=== PATIENT | female | born 1990 | race Caucasian/White ===

== ENCOUNTER 2017-10-30 17:01 | Emergency (ER) | payer OTHER ==
[2017-10-30 17:18] VITALS: BP 130/80
--- NOTE | 2017-10-30 17:33 | ED ---
GI/ HPI - HPI Summary HPI Summary: 26 yr old female with the complaint of dysuria, frequency of urination. Denies back pain, fever. She states she feels like she has a UTI. She is not sexually active. LMP 3 weeks ago. - History of Current Complaint Chief Complaint: UCGU Time Seen by Provider: 10/30/17 17:25 Stated Complaint: URINARY Hx Last Menstrual Period: 10/08/17 Pain Intensity: 5 - Allergy/Home Medications Allergies/Adverse Reactions: Allergies Allergy/AdvReac Type Severity Reaction Status Date / Time No Known Allergies Allergy Verified 10/30/17 17:14 PMH/Surg Hx/FS Hx/Imm Hx Endocrine/Hematology History: Reports: Hx Diabetes - TYPE I Cardiovascular History: Reports: Hx Hypertension Infectious Disease History: No Infectious Disease History: Denies: Traveled Outside the [place] in Last 30 Days - Social History Alcohol Use: None Substance Use Type: Reports: None Smoking Status (MU): Never Smoked Tobacco Review of Systems Constitutional: Negative Positive: dysuria, frequency All Other Systems Reviewed And Are Negative: Yes Physical Exam Triage Information Reviewed: Yes Vital Signs On Initial Exam: Initial Vitals Temp Pulse Resp BP Pulse Ox 98.7 F 93 18 130/80 100 10/30/17 17:11 10/30/17 17:11 10/30/17 17:11 10/30/17 17:11 10/30/17 17:11 Vital Signs Reviewed: Yes Appearance: Positive: Well-Appearing, No Pain Distress Skin: Positive: Warm, Skin Color Reflects Adequate Perfusion Head/Face: Positive: Normal Head/Face Inspection Eyes: Positive: EOMI Neck: Positive: Nontender Respiratory/Lung Sounds: Positive: Clear to Auscultation, Breath Sounds Present Cardiovascular: Positive: RRR. Negative: Murmur Abdomen Description: Negative: CVA Tenderness (R), CVA Tenderness (L) Musculoskeletal: Positive: Strength/ROM Intact Neurological: Positive: Sensory/Motor Intact, Alert, Oriented to Person Place, Time, CN Intact II-III Psychiatric: Positive: Affect/Mood Appropriate - Anita Coma Scale Best Eye Response: 4 - Spontaneous Best Motor Response: 6 - Obeys Commands Best Verbal Response: 5 - Oriented Coma Scale Total: 15 Diagnostics - Vital Signs Vital Signs Temp Pulse Resp BP Pulse Ox 10/30/17 17:11 98.7 F 93 18 130/80 100 - Laboratory Lab Results: Lab Results 10/30/17 Range/Units 17:25 POC Urine Color Yellow POC Urine Clarity Clear POC Urine pH 6.0 (5-9) POC Ur Specif [place] <= 1.005 L (1.010-1.030) POC Urine Protein Negative (Negative) POC Ur Glucose (UA) 2+ A (Negative) POC Urine Ketones Negative (Negative) POC Urine Blood 1+ A (Negative) POC Urine Nitrite Negative (Negative) POC Urine Bilirubin Negative (Negative) POC Urine Urobilinogen 0.2 (Negative) POC U Leukocyte Esteras 1+ A (Negative) Lab Statement: Any lab studies that have been ordered have been reviewed, and results considered in the medical decision making process. GIGU Course/Dx - Course Course Of Treatment: 26 yr old female with dysuria, UTI symptoms. Rx with Keflex. - Diagnoses Provider Diagnoses: UTI (urinary tract infection) Discharge - Sign-Out/Discharge Documenting (check all that apply): Discharge/Admit/Transfer - Discharge Plan Condition: Good Disposition: HOME Prescriptions: Cephalexin CAP* [Keflex CAP*] 500 mg PO TID #15 cap Patient Education Materials: Urinary Tract Infection in Women (DC) Referrals: IVAN Correa [Primary Care Provider] - 2 Days - Billing Disposition and Condition Condition: GOOD Disposition: HOME
== END 2017-10-30 17:42 | disposition home or self-care (01) ==
LOC: UCCORT 17:01
DX: N39.0 Urinary tract infection, site not specified (principal)
CPT/HCPCS: 81003; 87086; 99212; G0463

== ENCOUNTER 2018-11-11 18:00 | Emergency (ER) | payer OTHER ==
[2018-11-11 18:40] VITALS: BP 136/71
--- NOTE | 2018-11-11 19:28 | UC ---
Lower Extremity/Ankle HPI - HPI Summary HPI Summary: 28 year old female presents with complaints of pain and swelling to her left ankle after injury. States occurred last night when she slipped descending stairs. She is unsure of the exact mechanism of injury. Notes bruising and abrasion to her left lower leg as well. She was able to walk and bear weight on the leg immediately after the injury as well as in the clinic. Denies numbness or tingling. - History of Current Complaint Chief Complaint: UCLowerExtremity Stated Complaint: SP FALL-LT ANKLE INJURY Time Seen by Provider: 11/11/18 19:10 Hx Obtained From: Patient Hx Last Menstrual Period: 10/16/18 Pain Intensity: 6 - Allergies/Home Medications Allergies/Adverse Reactions: Allergies Allergy/AdvReac Type Severity Reaction Status Date / Time No Known Allergies Allergy Verified 11/11/18 18:40 PMH/Surg Hx/FS Hx/Imm Hx Endocrine History: Diabetes Cardiovascular History: Hypertension - Surgical History Surgical History: None - Family History Known Family History: Positive: Non-Contributory - Social History Occupation: Employed Full-time Lives: With Family Alcohol Use: None Substance Use Type: None Smoking Status (MU): Never Smoked Tobacco Household Exposure Type: Cigarettes - Immunization History Vaccination Up to Date: Yes Review of Systems All Other Systems Reviewed And Are Negative: Yes Constitutional: Positive: Negative Skin: Positive: Bruising, Other - Abrasion Respiratory: Positive: Negative Cardiovascular: Positive: Negative Gastrointestinal: Positive: Negative Genitourinary: Positive: Negative Motor: Negative: Weakness Neurovascular: Negative: Decreased Sensation Musculoskeletal: Positive: Other: - See HPI Neurological: Positive: Negative Is Patient Immunocompromised?: No Physical Exam - Summary Physical Exam Summary: GENERAL APPEARANCE: Well developed, well nourished, alert and cooperative, and appears to be in no acute distress. CARDIAC: Normal S1 and S2. No S3, S4 or murmurs. Rhythm is regular. There is no peripheral edema, cyanosis or pallor. Extremities are warm and well perfused. Capillary refill is less than 2 seconds. Peripheral pulses intact. LUNGS: Clear to auscultation without rales, rhonchi, wheezing or diminished breath sounds. ABDOMEN: Positive bowel sounds. Soft, nondistended, nontender. No guarding or rebound. No masses or hepatosplenomegally. MUSKULOSKELETAL: Normal muscular development. Normal gait. EXTREMITIES: Mild tenderness over the left lateral malleolus without ecchymosis , erythema, edema, or gross deformity. Superficial abrasion to the left anterior lower leg. Area of ecchymosis to the lateral aspect of the left lower leg. Circulation and sensation intact. SKIN: Skin normal color, texture and turgor with no lesions or eruptions. Triage Information Reviewed: Yes Vital Signs: Initial Vital Signs Temp 98.7 F 11/11/18 18:37 Pulse 89 11/11/18 18:37 Resp 18 11/11/18 18:37 BP 136/71 11/11/18 18:37 Pulse Ox 100 11/11/18 18:37 Vital Signs Reviewed: Yes Diagnostics - Radiology No standard instances Radiology Interpretation Completed By: ED Physician - No acute fracture Lower Extremity Course/Dx - Course Course Of Treatment: 28 year old female presents with complaints of pain and swelling to her left ankle after injury. States occurred last night when she slipped descending stairs. She is unsure of the exact mechanism of injury. Notes bruising and abrasion to her left lower leg as well. She was able to walk and bear weight on the leg immediately after the injury as well as in the clinic. Denies numbness or tingling. Afebrile. VSS. Exam revealed mild tenderness over the left lateral malleolus without ecchymosis, erythema, edema, or gross deformity, a superficial abrasion to the left anterior lower leg, and an area of ecchymosis to the lateral aspect of the left lower leg with circulation and sensation intact. X-ray was negative for fracture. She was placed in an VIVIENNE wrap and stirrup splint by the RN. Sensation and circulation intact pre- and post- application. Recommend conservative treatment with OTC analgesics and RICE. She is to follow up with orthopedic surgery in 5-7 days if no improvement in symptoms. Anticipatory guidance and warning symptoms reviewed with the patient. Verbalizes understanding and agrees with POC. - Differential Dx/Diagnosis Differential Diagnosis/HQI/PQRI: Contusion, Dislocation, Fracture (Closed), Sprain Provider Diagnosis: Left ankle sprain, Abrasion of left lower leg, Contusion of left lower leg Discharge - Sign-Out/Discharge Documenting (check all that apply): Patient Departure All imaging exams completed and their final reports reviewed: No - Discharge Plan Condition: Stable Disposition: HOME Patient Education Materials: Ankle Sprain (ED), Contusion in Adults (ED), Ankle Stirrup Splint (ED), Abrasion (ED) Referrals: Kirsten Gold MD [Primary Care Provider] - Chester Pacheco MD [Medical Doctor] - 5 Days Additional Instructions: The x-ray performed in the clinic today showed no evidence of a fracture. The x- ray will be reviewed by the radiologist tomorrow and we will contact your if they see anything that will change your plan of care. Rest the ankle as much as possible. You may continue to walk and bear weight as tolerated. Use the VIVIENNE wrap for the next 3-5 days to help with swelling. Wear the ankle splint until you are pain free. Apply ice to the affected area for 15-20 minutes at least 4 times a day to help with the pain and swelling. Elevate the foot to help reduce swelling. Take acetaminophen (Tylenol) or ibuprofen (Advil, Motrin) according to directions as needed for pain. Follow up with orthopedic surgery in 5-7 days if symptoms do not improve. Seek immediate medical attention if you have severe pain not managed with pain medication, you are unable to walk or bear any weight, develop numbness or tingling in the foot or toes, or have any worsening of symptoms. - Billing Disposition and Condition Condition: STABLE Disposition: Home
--- NOTE | 2018-11-12 12:36 | UC ---
- Progress Note Progress Note: Final x-ray reading reviewed. IMPRESSION: Soft tissue swelling laterally without fracture. Consistent with preliminary reading. No change in POC. Course/Dx - Diagnoses Provider Diagnoses: Left ankle sprain, Abrasion of left lower leg, Contusion of left lower leg Discharge - Sign-Out/Discharge Documenting (check all that apply): Post-Discharge Follow Up All imaging exams completed and their final reports reviewed: Yes - Discharge Plan Condition: Stable Disposition: HOME Patient Education Materials: Ankle Sprain (ED), Contusion in Adults (ED), Ankle Stirrup Splint (ED), Abrasion (ED) Referrals: Chester Pacheco MD [Medical Doctor] - 5 Days Kirsten Gold MD [Primary Care Provider] - Additional Instructions: The x-ray performed in the clinic today showed no evidence of a fracture. The x- ray will be reviewed by the radiologist tomorrow and we will contact your if they see anything that will change your plan of care. Rest the ankle as much as possible. You may continue to walk and bear weight as tolerated. Use the VIVIENNE wrap for the next 3-5 days to help with swelling. Wear the ankle splint until you are pain free. Apply ice to the affected area for 15-20 minutes at least 4 times a day to help with the pain and swelling. Elevate the foot to help reduce swelling. Take acetaminophen (Tylenol) or ibuprofen (Advil, Motrin) according to directions as needed for pain. Follow up with orthopedic surgery in 5-7 days if symptoms do not improve. Seek immediate medical attention if you have severe pain not managed with pain medication, you are unable to walk or bear any weight, develop numbness or tingling in the foot or toes, or have any worsening of symptoms. - Billing Disposition and Condition Condition: STABLE Disposition: Home
== END 2018-11-11 19:39 | disposition home or self-care (01) ==
LOC: UCCORT 18:00
DX: S93.402A Sprain of unspecified ligament of left ankle, initial encounter (principal); S80.12XA Contusion of left lower leg, initial encounter; S80.812A Abrasion, left lower leg, initial encounter; E11.9 Type 2 diabetes mellitus without complications; I10 Essential (primary) hypertension; X58.XXXA Exposure to other specified factors, initial encounter; Y92.9 Unspecified place or not applicable
CPT/HCPCS: 99213; G0463

== ENCOUNTER 2019-02-08 16:24 | Emergency (ER) | payer OTHER ==
[2019-02-08 16:41] VITALS: BP 106/62
--- NOTE | 2019-02-08 17:06 | UC ---
Abdominal Pain Female HPI - HPI Summary HPI Summary: Patient presents to urgent care with her mother. Patient's a 28-year-old female insulin-dependent diabetes who states the last to 3 days she's had urinary frequency, auditory arm, and dysuria. No vaginal discharge, itching, odor. Patient states she is not . Patient states earlier today she had some belly pain but that resolved. No nausea or vomiting. No fevers, chills, rash. Patient with a history of UTIs last one being approximately 4 months ago. Patient states her sugars have been poorly controlled and she has a scheduled follow-up with her primary this coming Monday. Patient is not immunocompromised, diabetes. Patient's medications reviewed this visit. - History of Current Complaint Chief Complaint: UCGU Stated Complaint: URINARY Time Seen by Provider: 02/08/19 16:31 Hx Obtained From: Patient, Family/Crossbar Switch Adjuster Hx Last Menstrual Period: 01/30/19 Pain Intensity: 2 Allergies/Adverse Reactions: Allergies Allergy/AdvReac Type Severity Reaction Status Date / Time No Known Allergies Allergy Verified 02/08/19 16:42 Home Medications: Home Medications Cholecalciferol TAB* [Vitamin D TAB*] 1 tab PO DAILY 02/08/19 [History Confirmed 02/08/19] Insulin Lispro [Admelog] 0 units SUBCUT DAILY 02/08/19 [History Confirmed ] PMH/Surg Hx/FS Hx/Imm Hx Previously Healthy: Yes Endocrine History: Diabetes - Surgical History Surgical History: None - Family History Known Family History: Positive: Non-Contributory - Social History Lives: With Family Alcohol Use: None Substance Use Type: None Smoking Status (MU): Never Smoked Tobacco Household Exposure Type: Cigarettes - Immunization History Vaccination Up to Date: Yes Review of Systems All Other Systems Reviewed And Are Negative: Yes Constitutional: Positive: Negative Skin: Positive: Negative Genitourinary: Positive: Dysuria, Frequency Is Patient Immunocompromised?: No Physical Exam - Summary Physical Exam Summary: Vital Signs Reviewed: Yes A+Ox3, no distress Eyes: Conjunctiva Clear, DHRUV. EOM intact and full ENT: Hearing grossly normal TM x 2 clear, mmoist, uvula midline, no exudate, no erythema Neck: Positive: Supple Respiratory: Positive: No respiratory distress, No accessory muscle use + CTA throughout no w/r Cardiovascular: RRR nl s1, s2 no m/r CBT <2 sec abd soft + BS nt/nd no guarding, no distension, no CVA no rebound Musculoskeletal Exam: JONES x 4 without difficulty Strength Intact, ROM Intact Neurological: Positive: Alert, + sensation throughout Psychological: Positive: Normal Response To bag tester Skin: Positive: no rash, no ecchymosis Triage Information Reviewed: Yes Vital Signs: Initial Vital Signs Temp 97.8 F 02/08/19 16:36 Pulse 82 02/08/19 16:36 Resp 16 02/08/19 16:36 BP 106/62 02/08/19 16:36 Pulse Ox 100 02/08/19 16:36 Abd Pain Female Course/Dx - Course Course Of Treatment: Pt with a h/o IDDM here with urinary urgency, frequency x 2 days. had abd pain earlier - resolved -no fever - Pt with + LE, blood give dm - will culture start Macrobid Pt ahs appt with PCP Monday strict return precaution Pt declined Diflucan - states does not get yeast infections - Differential Dx/Diagnosis Provider Diagnosis: Dysuria Discharge - Sign-Out/Discharge Documenting (check all that apply): Patient Departure All imaging exams completed and their final reports reviewed: No Studies - Discharge Plan Condition: Stable Disposition: HOME Prescriptions: Nitrofurantoin Monohyd/M-Cryst [Macrobid 100 mg Capsule] 100 mg PO BID #14 cap Patient Education Materials: Urinary Tract Infection in Women (ED) Forms: *Gen. Provider Communication Referrals: Kirsten Gold MD [Primary Care Provider] - Additional Instructions: - stay well hydrated - drink plenty of non-alcoholic, non caffinated beverages - your urine will be further tested - if you require any changes to your treatment, we will contact you - this usually take 2 days - Contact your primary doctor to arrange a follow-up appointment next week. Contact your doctor or return with questions or concerns - Take your antibiotics exactly as prescribed until gone - Okay to alternate ibuprofen (Advil, Motrin) and Tylenol every 3 hours for pain. Take with food - If you develop fevers, pain, vomiting, back pain or ANY other concerns go to the emergency department. Keep your appointment with your doctor as scheduled on Monday. - Billing Disposition and Condition Condition: STABLE Disposition: Home
== END 2019-02-08 17:24 | disposition home or self-care (01) ==
LOC: UCCORT 16:24
DX: R30.0 Dysuria (principal); E11.9 Type 2 diabetes mellitus without complications; Z79.4 Long term (current) use of insulin; Z87.440 Personal history of urinary (tract) infections
CPT/HCPCS: 81003; 84702; 87086; 99212; G0463

== ENCOUNTER 2019-06-05 14:57 | Emergency (ER) | payer OTHER ==
[2019-06-05 15:27] VITALS: BP 145/77
--- NOTE | 2019-06-05 16:09 | UC ---
Throat Pain/Nasal Octavio HPI - HPI Summary HPI Summary: 28-year-old female comes in with chief complaint of one week of upper respiratory tract infection symptoms. She's got rhinorrhea cough chest congestion sore throat. She is on amoxicillin and Bactrim that was started 4 days ago. Patient reports at that time she had conjunctivitis in addition to her present symptoms. Overall her rhinorrhea and conjunctivitis symptoms have improved. She still has some chest congestion. Coughing makes the throat hurts more. - History of Current Complaint Chief Complaint: UCGeneralIllness Stated Complaint: ST Time Seen by Provider: 06/05/19 15:48 Hx Last Menstrual Period: 05/15/19 Pain Intensity: 0 - Allergies/Home Medications Allergies/Adverse Reactions: Allergies Allergy/AdvReac Type Severity Reaction Status Date / Time No Known Allergies Allergy Verified 06/05/19 15:20 Home Medications: Home Medications Acetaminophen/Dextromethorphan [Daytime Cold & Cough Liquid] 1 dose PO ONCE 05/14 [History Confirmed 06/05/19] Amoxicillin PO (*) [Amoxicillin 875 MG (*)] 875 mg PO BID 06/05/19 [History Confirmed 06/05/19] Sulfamethox/Trimethoprim DS* [Bactrim DS 800/160 TAB*] 1 tab PO BID 06/05/19 [ History Confirmed 06/05/19] PMH/Surg Hx/FS Hx/Imm Hx Previously Healthy: Yes Endocrine History: Diabetes, Dyslipidemia - Surgical History Surgical History: None - Family History Known Family History: Positive: Non-Contributory - Social History Alcohol Use: None Substance Use Type: None Smoking Status (MU): Never Smoked Tobacco Household Exposure Type: Cigarettes - Immunization History Vaccination Up to Date: Yes Review of Systems All Other Systems Reviewed And Are Negative: Yes Constitutional: Positive: Other - see hpi Skin: Positive: Negative Eyes: Positive: Negative ENT: Positive: Sore Throat, Nasal Discharge Respiratory: Positive: Cough, Other - see hpi Cardiovascular: Positive: Negative Gastrointestinal: Positive: Negative Motor: Positive: Negative Neurovascular: Positive: Negative Musculoskeletal: Positive: Negative Neurological: Positive: Negative Psychological: Positive: Negative Is Patient Immunocompromised?: No Physical Exam Triage Information Reviewed: Yes Appearance: Well-Appearing, No Pain Distress, Well-Nourished Vital Signs: Initial Vital Signs Temp 97.4 F 06/05/19 15:21 Pulse 107 06/05/19 15:21 Resp 18 06/05/19 15:21 BP 145/77 06/05/19 15:21 Pulse Ox 100 06/05/19 15:21 Vital Signs Reviewed: Yes Eye Exam: Normal Eyes: Positive: Conjunctiva Clear ENT: Positive: Pharyngeal erythema, Nasal congestion, Nasal drainage, TMs normal Neck: Positive: Supple Respiratory: Positive: Lungs clear, Normal breath sounds, No respiratory distress Cardiovascular: Positive: RRR Musculoskeletal: Positive: Strength Intact, ROM Intact Neurological: Positive: Alert, Muscle Tone Normal Psychological: Positive: Age Appropriate Behavior Skin Exam: Normal Throat Pain/Nasal Course/Dx - Course Course Of Treatment: Patient is already on 2 different antibiotics. Overall she is improving. She' ll continue symptomatically treatment. I added Robitussin DM with instructions for Phenergan to help with the cough. Get reevaluated if not improving or worse. - Differential Dx/Diagnosis Provider Diagnosis: Upper respiratory infection Discharge ED - Sign-Out/Discharge Documenting (check all that apply): Patient Departure All imaging exams completed and their final reports reviewed: No Studies - Discharge Plan Condition: Stable Disposition: HOME Prescriptions: GuaiFENesin DM 100 mg/10 mg [Robitussin DM 100 mg/10 mg in 5 ml] 10 ml PO Q4H PRN #180 ml PRN Reason: Cough Patient Education Materials: Upper Respiratory Infection (ED) Referrals: Kirsten Gold MD [Primary Care Provider] - Additional Instructions: FOLLOW UP WITH YOUR DOCTOR IF NOT COMPLETELY IMPROVED. GET REEVALUATED SOONER IF NOT IMPROVING OR WORSE OR ANY QUESTIONS OR CONCERNS. - Billing Disposition and Condition Condition: STABLE Disposition: Home
== END 2019-06-05 16:27 | disposition home or self-care (01) ==
LOC: UCCORT 14:57
DX: J06.9 Acute upper respiratory infection, unspecified (principal); E11.9 Type 2 diabetes mellitus without complications
CPT/HCPCS: 99212; G0463